=== PATIENT | male | born 1980 | race Caucasian/White ===

== ENCOUNTER 2017-08-11 07:55 | Day surgery (SDC) | payer BC ==
[2017-08-07 11:11] VITALS: BMI 21.9
[~2017-08-11 07:55] MED LIST: LACTATED RINGERS 1,000 ML IV SCH
[2017-08-11 08:40] VITALS: TEMP 98.1
[2017-08-11] MEDS ORDERED: LIDOCAINE 1% 20 ML VIAL (10MG/ML) FOR IV START INTRADERMA ONE (08:41)
[2017-08-11] MEDS ORDERED: PROPOFOL 10 MG/ML 20 ML VIAL IV ONE (09:38)
[2017-08-11] MEDS ORDERED: GLYCOPYRROLATE 0.2 MG/ML 2 ML VIAL ONE (09:38)
--- NOTE | 2017-08-11 09:59 | P.GSHP ---
History of Present Illness H&P Date: 08/11/17 Chief Complaint: GI bleed This is a 36-year-old male referred from Dr. Vadim Zepeda. Patient's had issues with rectal bleeding. He presents today for colonoscopy. Past Medical History Past Medical History: No Reported History Additional Past Medical History / Comment(s): recent blood in stool for few weeks, intermittent, had same issue end of last year, was tx. for some type of infection History of Any Multi-Drug Resistant Organisms: None Reported Additional Past Surgical History / Comment(s): WISDOM TEETH EXTRACTION, VASECTOMY, colonoscopy Past Anesthesia/Blood Transfusion Reactions: No Reported Reaction Past Psychological History: No Psychological Hx Reported Smoking Status: Never smoker Past Alcohol Use History: Occasional Past Drug Use History: None Reported - Past Family History Mother Family Medical History: Cancer Additional Family Medical History / Comment(s): SKIN CANCER Medications and Allergies Home Medications Medication Instructions Recorded Confirmed Type No Known Home Medications [No 08/07/17 08/07/17 History Known Home Medications] Allergies Allergy/AdvReac Type Severity Reaction Status Date / Time No Known Allergies Allergy Verified 08/07/17 10:58 Surgical - Exam Vital Signs Temp Pulse Resp BP Pulse Ox 98.1 F 57 L 18 125/74 100 08/11/17 08:38 08/11/17 08:38 08/11/17 08:38 08/11/17 08:38 08/11/17 08:38 - General well developed, no distress - Eyes PERRL - ENT normal pinna - Neck no masses - Respiratory normal expansion - Cardiovascular Rhythm: regular - Abdomen Abdomen: soft, non tender Assessment and Plan Plan: GI bleed. We'll perform colonoscopy.
--- NOTE | 2017-08-11 10:17 | P.OP ---
Date of Procedure: 08/11/17 Preoperative Diagnosis: GI bleed Postoperative Diagnosis: Internal hemorrhoids Procedure(s) Performed: Colonoscopy Anesthesia: MAC Surgeon: Sincere Zaragoza Pathology: none sent Condition: stable Disposition: PACU Description of Procedure: PROCEDURE: The patient was placed on the endoscopy table in the lateral position. Digital rectal examination was performed which revealed mild internal hemorrhoids. The prostate was symmetrical without nodules. Flexible colonoscope was then placed in the patient's anus and passed throughout the entire colon. The ileocecal valve was visualized. The cecum, ascending, transverse, descending and sigmoid colon were normal. The rectum was normal as well. There were no masses, polyps or diverticula noted in the entire colon.
[2017-08-11 10:33] VITALS: BP 106/68; PULSE 50; RESP 18
== END 2017-08-11 11:25 | disposition home or self-care (01) ==
LOC: ORWHC2ENDO 07:55
PROVIDERS: ATTEND Surgery
DX: K64.8 Other hemorrhoids (principal); K92.2 Gastrointestinal hemorrhage, unspecified
CPT/HCPCS: 45378; J2704